=== PATIENT | female | born 1980 ===

== ENCOUNTER 2021-11-02 10:42 | Inpatient (IN) | payer OTHER ==
[~2021-11-02] VITALS: Ht 165.1 cm; Wt 3.2 kg
[2021-11-04] MEDS ORDERED: PRENATAL CAPLE1 EAC1 PO (08:12)
[2021-11-04] MEDS ORDERED: AMPICILLIN TRI500 MG PO (08:12)
== END 2021-11-07 12:57 | disposition home or self-care (01) | DRG 785 ==
LOC: OB/GYN 11-04 05:40 → O/R 11-04 05:40 → OB/GYN 11-04 11:00
PROVIDERS: ADMIT Obstetrics & Gynecology; ATTEND Obstetrics & Gynecology
PROC: 0UL70ZZ Occlusion of Bilateral Fallopian Tubes, Open Approach (ICD-10-PCS; 2021-11-04)
PROC: 4A1HXCZ Monitoring of Products of Conception, Cardiac Rate, External Approach (ICD-10-PCS; 2021-11-04)
PROC: 10D00Z1 Extraction of Products of Conception, Low, Open Approach (ICD-10-PCS; principal; 2021-11-04 12:30)
DX: O82 Encounter for cesarean delivery without indication (principal); Z3A.39 39 weeks gestation of pregnancy; Z37.0 Single live birth; Z30.2 Encounter for sterilization; Z20.822 Contact with and (suspected) exposure to COVID-19